=== PATIENT | male | born 1970 | race Caucasian/White ===

== ENCOUNTER → 2023-08-09 | Outpatient (CLI) | payer OTHER ==
[2023-08-09 15:21] LABS: BASO # 0.02 K/mm3 (0.02-0.10); EOS # 0.19 K/mm3 (0.04-0.40); EOS % 2.9 % (0.0-4.0); HEMATOCRIT 44.1 % (42.0-52.0); HEMOGLOBIN 14.4 g/dL (13.5-18.0); MEAN CELL VOLUME 95 fl (78-100); MEAN CORPUSCULAR HEMOGLOBIN 31 pg (27-31); MEAN CORPUSCULAR HGB CONC 33 g/dL (33-37); MEAN PLATELET VOLUME 8.4 fl (7.4-10.4); MONO # 0.69 K/mm3 (0.20-0.80); NEU # 4.24 K/mm3 (1.40-6.50); PLATELET COUNT 215 K/mm3 (130-400); RED BLOOD COUNT 4.65 M/mm3 (4.20-5.60); WHITE BLOOD COUNT 6.7 K/mm3 (4.8-10.8)
[2023-08-09 15:32] LABS: ALBUMIN 4.3 g/dL (3.5-5.0)
[2023-08-09 15:33] LABS: CALCIUM 9.6 mg/dL (8.3-10.5)
[2023-08-09 15:34] LABS: TOTAL PROTEIN 7.4 g/dL (6.4-8.3)
[2023-08-09 15:36] LABS: TOTAL BILIRUBIN 0.4 mg/dL (0.2-1.2)
== END ==
LOC: LAB 14:58
PROVIDERS: Family Medicine
DX: Z00.00 Encounter for general adult medical examination without abnormal findings (principal); Z12.5 Encounter for screening for malignant neoplasm of prostate; Z13.220 Encounter for screening for lipoid disorders; Z13.29 Encounter for screening for other suspected endocrine disorder

== ENCOUNTER → 2024-01-03 | Outpatient (CLI) | payer OTHER ==
[2024-01-03 14:47] LABS: ALBUMIN 4.4 g/dL (3.5-5.0)
[2024-01-03 14:48] LABS: CALCIUM 9.8 mg/dL (8.3-10.5)
[2024-01-03 14:49] LABS: TOTAL PROTEIN 7.4 g/dL (6.4-8.3)
[2024-01-03 14:51] LABS: TOTAL BILIRUBIN 0.6 mg/dL (0.2-1.2)
== END ==
LOC: LAB 14:22
PROVIDERS: Family Medicine
DX: R74.01 Elevation of levels of liver transaminase levels (principal)